=== PATIENT | male | born 1955 ===

== ENCOUNTER → 2022-04-17 07:38 | Outpatient (BNVA) | payer OTHER, SELFPAY | PROVIDERS: Visit Provider Specialist | DX: M67.912 Unspecified disorder of synovium and tendon, left shoulder (principal); M19.012 Primary osteoarthritis, left shoulder; X50.0XXA Overexertion from strenuous movement or load, initial encounter | CPT/HCPCS: 73030; 99204 ==

== ENCOUNTER 2022-05-17 08:29 | Outpatient (CLI) | payer OTHER, SELFPAY ==
--- NOTE | 2022-05-17 08:35 | MR_ITS ---
WS: [id number] MRI LEFT SHOULDER NONCONTRAST TECHNIQUE: Sagittal T2, coronal T1, T2 and proton density imaging. Axial gradient PDE imaging. CLINICAL INFORMATION: shoulder pain COMPARISON: None. 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 Moderate degenerative arthritis of the AC joint with edema and synovial thickening. S light subacromial spurring. Mild narrowing of the subacromial space with slight impingement on the di stal supraspinatus. Small undersurface tear distal supraspinatus extending to the insertion. No tendon retraction. Chroni c thinning of the distal supraspinatus tendon. Normal infraspinatus. Normal teres minor. Normal subsc apularis. Biceps tendon intact within the bicipital groove. Tear of the intra-articular biceps tendon with T2 s ignal abnormality and tendinopathy. Partial tear as the biceps tendon enters the bicipital groove. Degenerative fraying of the glenoid labrum. Chronic appearing tear of the posterior inferior glenoid labrum with associated para labral cyst measuring 12 mm. MR/MR shoulder LT wo con* [id number] IMPRESSION: 1. Intrasubstance tear of the intra-articular biceps tendon in the rotator int erval just proximal to the bicipital groove entrance. Associated T2 signal abno rmality with tendinopathy. 2. Biceps labral anchor appears intact. 3. Normal biceps tendon in the bicipital groove. 4. Degenerative fraying of the glenoid labrum with chronic appearing posterior inferior labral tear. Associated para labral cyst measuring 12.5 mm. 5. Small undersurface tear involving the distal supraspinatus extending to the insertion. No tendon retraction. 6. Rotator cuff is otherwise normal. 7. Moderate degenerative arthritis AC joint with mild edema and mild downslopi ng of the acromion. Slight subacromial spurring.
== END 2022-05-17 08:30 | disposition home or self-care (01) ==
LOC: RAD 08:31
PROVIDERS: Visit Provider Specialist
DX: S46.212A Strain of muscle, fascia and tendon of other parts of biceps, left arm, initial encounter; X58.XXXA Exposure to other specified factors, initial encounter; M19.012 Primary osteoarthritis, left shoulder
CPT/HCPCS: 73221

== ENCOUNTER → 2022-06-03 12:45 | Outpatient (BNVA) | payer OTHER, SELFPAY | PROVIDERS: Visit Provider Specialist | DX: M67.912 Unspecified disorder of synovium and tendon, left shoulder (principal) | CPT/HCPCS: 20610; 99213; J1100; J2795; J3301 ==

== ENCOUNTER 2022-06-24 08:41 | Outpatient (RCR) | payer OTHER, SELFPAY | END 2022-07-06 23:59 | disposition home or self-care (01) | LOC: SPT 08:41 | PROVIDERS: Visit Provider Specialist | DX: M25.512 Pain in left shoulder (principal) | CPT/HCPCS: 97161 ==

== ENCOUNTER 2022-07-07 06:00 | Outpatient (RCR) | payer OTHER, SELFPAY | END 2022-08-06 23:59 | disposition home or self-care (01) | LOC: SPT 06:00 | PROVIDERS: Visit Provider Specialist | DX: M25.512 Pain in left shoulder (principal) | CPT/HCPCS: 97110 ==

== ENCOUNTER 2022-08-07 06:00 | Outpatient (RCR) | payer OTHER, SELFPAY | END 2022-09-03 23:59 | disposition home or self-care (01) | LOC: SPT 06:00 | PROVIDERS: Visit Provider Specialist | DX: M25.512 Pain in left shoulder (principal) | CPT/HCPCS: 97110 ==

== ENCOUNTER 2022-09-04 06:00 | Outpatient (RCR) | payer OTHER, SELFPAY | END 2022-10-04 23:59 | disposition home or self-care (01) | LOC: SPT 06:00 | PROVIDERS: Visit Provider Specialist | DX: M25.512 Pain in left shoulder (principal) | CPT/HCPCS: 97110 ==

== ENCOUNTER 2022-10-05 06:00 | Outpatient (RCR) | payer OTHER, SELFPAY | END 2022-11-03 23:59 | disposition home or self-care (01) | LOC: SPT 06:00 | PROVIDERS: Visit Provider Specialist | DX: M25.512 Pain in left shoulder (principal) | CPT/HCPCS: 97110 ==

== ENCOUNTER 2022-11-04 06:00 | Outpatient (RCR) | payer OTHER, SELFPAY | END 2022-12-04 23:59 | disposition home or self-care (01) | LOC: SPT 06:00 | PROVIDERS: Visit Provider Specialist | DX: M25.512 Pain in left shoulder (principal) | CPT/HCPCS: 97110 ==

== ENCOUNTER 2022-12-05 10:34 | Outpatient (RCR) | payer OTHER, SELFPAY | END 2023-01-02 23:59 | disposition home or self-care (01) | LOC: SPT 10:34 | PROVIDERS: Visit Provider Specialist | DX: M25.512 Pain in left shoulder (principal) | CPT/HCPCS: 97110 ==